=== PATIENT | male | born 1955 | race Two or more races ===

== ENCOUNTER 2017-09-10 06:23 | Inpatient (IN) | payer OTHER ==
[~2017-09-10] VITALS: Ht 177.8 cm; Wt 84.8 kg
[2017-09-10 07:47] LABS: BASOPHIL % 0.2 % (0-2); PLATELET COUNT 183 x10^3mcL (130-400); RED CELL DISTRIBUTION WIDTH 12.9 % (11.5-14.5)
[2017-09-10 07:48] LABS: CALCIUM 7.6 mg/dL (8.5-10.1); CARBON DIOXIDE 28.4 mmol/L (21-32); CREATININE SERUM 1.4 mg/dL (0.7-1.3); POTASSIUM SERUM 4.1 mmol/L (3.5-5.1)
[2017-09-10 08:01] LABS: BILIRUBIN TOTAL 0.4 mg/dL (0.20-1.00); TOTAL PROTEIN, SERUM 6.6 g/dL (6.4-8.2)
[2017-09-10 08:04] LABS: ALBUMIN 2.9 g/dL (3.4-5.0); T4(THYROXINE) 4.1 ug/dL (4.7-13.3)
[2017-09-10 08:52] LABS: UA SPECIFIC GRAVITY 1.025 (1.005-1.035); microscopic required? YES; urine erythrocyte NEGATIVE (NEGATIVE)
[2017-09-10 09:00] LABS: AMPHETAMINE QUAL UR NONE DETECTED (NEG <=1000)
[2017-09-10] MEDS ORDERED: COZAAR100 MG PO (09:54)
[2017-09-10] MEDS ORDERED: LEVOTHYROXINE0.1 M2 PO (09:54)
[2017-09-10] MEDS ORDERED: NOR5 PO (09:54)
[2017-09-10] MEDS ORDERED: FUROSEMIDE40 MG PO (09:55)
[2017-09-10 11:41] LABS: CHOLESTEROL/HDL RATIO 3.6; PHOSPHOROUS 2.8 mg/dL (2.5-4.9)
[2017-09-10 12:19] LABS: FREE T4 1.3 ng/dL (0.76-1.46); FREE THYROXINE INDEX 1.4 ug/dL (1.4-4.5); T4(THYROXINE) 3.9 ug/dL (4.7-13.3)
[2017-09-10 12:53] LABS: T3 TOTAL 0.55 ng/mL
[2017-09-10 15:15] VITALS: BP 113/64
[2017-09-10 17:00] VITALS: BP 113/64
[2017-09-10 20:06] VITALS: BP 115/62
[2017-09-11 06:25] VITALS: BP 106/62
[2017-09-11 07:55] LABS: PLATELET COUNT 190 x10^3mcL (130-400); RED CELL DISTRIBUTION WIDTH 12.9 % (11.5-14.5)
[2017-09-11 07:56] LABS: BASOPHIL % 0 % (0-2)
[2017-09-11 08:17] LABS: CALCIUM 7.8 mg/dL (8.5-10.1); CARBON DIOXIDE 26.1 mmol/L (21-32); CHLORIDE SERUM 106 mmol/L (98-107); GFR1 > 60 mL/min; GLUCOSE SERUM 137 mg/dL (74-106); POTASSIUM SERUM 4.5 mmol/L (3.5-5.1); SODIUM SERUM 140 mmol/L (136-145)
[2017-09-11 09:40] VITALS: BP 116/65
[2017-09-11 09:43] VITALS: Ht 177.8 cm; Wt 84.8 kg
[2017-09-11 09:51] VITALS: BP 116/65
[2017-09-11] MEDS ORDERED: TESSALON PERLE100 MG PO (13:29)
== END 2017-09-11 14:00 | disposition home or self-care (01) | DRG 152 ==
LOC: ED → DU 10:14
PROVIDERS: Emergency Medicine; Family Medicine Sports Medicine
DX: J11.1 Influenza due to unidentified influenza virus with other respiratory manifestations (principal); N17.0 Acute kidney failure with tubular necrosis; E44.0 Moderate protein-calorie malnutrition; G90.8 Other disorders of autonomic nervous system; I10 Essential (primary) hypertension; E03.9 Hypothyroidism, unspecified; E78.00 Pure hypercholesterolemia, unspecified; E11.65 Type 2 diabetes mellitus with hyperglycemia; E83.51 Hypocalcemia; Z68.22 Body mass index [BMI] 22.0-22.9, adult
CPT/HCPCS: 36600; 82962; 83880; 84439; 87804; J1956; J2930; J7030; J7050; J7613; J7644; Q0092